=== PATIENT | female | born 1980 | race Caucasian/White ===

== ENCOUNTER 2017-03-05 14:37 | Outpatient (CLI) | payer MEDICAID | END 2017-03-05 14:38 | disposition critical access hospital (66) | DX: R07.9 Chest pain, unspecified (principal); R06.00 Dyspnea, unspecified; R25.2 Cramp and spasm | CPT/HCPCS: A0425; A0427 ==

== ENCOUNTER 2017-03-05 14:53 | Emergency (ER) | payer MEDICAID ==
[2017-03-05] MEDS ORDERED: LORazepam 0.5 MG TABLET PO STA (15:05)
[2017-03-05] MEDS ORDERED: LORazepam 2 MG/ML SYRINGE IVP STA (15:07)
[2017-03-05] MEDS ORDERED: LORazepam 2 MG/ML SYRINGE ONE (15:10)
== END 2017-03-05 16:15 | disposition home or self-care (01) ==
DX: F41.9 Anxiety disorder, unspecified (principal); F17.200 Nicotine dependence, unspecified, uncomplicated
CPT/HCPCS: 81003; 81025; 93005; 93010; 96374; 99283; J2060

== ENCOUNTER 2017-03-12 19:07 | Outpatient (CLI) | payer MEDICAID | END 2017-03-12 19:08 | disposition critical access hospital (66) | DX: R52 Pain, unspecified (principal) | CPT/HCPCS: A0425; A0429 ==

== ENCOUNTER 2017-03-12 19:25 | Emergency (ER) | payer MEDICAID ==
[2017-03-12] MEDS ORDERED: LORazepam 0.5 MG TABLET PO STA (20:27)
[2017-03-12] MEDS ORDERED: LORazepam 0.5 MG TABLET ONE (20:31)
== END 2017-03-12 21:34 | disposition home or self-care (01) ==
DX: F41.9 Anxiety disorder, unspecified (principal); F17.200 Nicotine dependence, unspecified, uncomplicated
CPT/HCPCS: 93005; 99283; A9270

== ENCOUNTER 2017-03-29 08:00 | Outpatient (CLI) | payer MEDICAID | END 2017-03-29 08:01 | disposition home or self-care (01) | DX: F17.210 Nicotine dependence, cigarettes, uncomplicated (principal); F41.9 Anxiety disorder, unspecified ==

== ENCOUNTER 2019-01-19 16:39 | Emergency (ER) | payer OTHER ==
[2019-01-19 16:43] VITALS: BP 147/98
[2019-01-19 17:56] LABS: BILIRUBIN,URINE NEGATIVE (NEGATIVE); GLUCOSE, URINE (UA) NEGATIVE (NEGATIVE); KETONES,URINE (UA) NEGATIVE (NEGATIVE); LEUKOCYTE ESTERASE, URINE TRACE (NEGATIVE); NITRITE,URINE NEGATIVE (NEGATIVE); OCCULT BLOOD,URINE NEGATIVE (NEGATIVE); PROTEIN,URINE NEGATIVE (NEGATIVE); UROBILINOGEN,URINE 0.2 (NORMAL) E.U./dL (NORMAL)
[2019-01-19 18:04] LABS: BACTERIA,URINE None Seen /HPF (None Seen); CLARITY,URINE CLEAR (CLEAR); HCG UR QUAL NEGATIVE; MUCUS,URINE Few Strands; RBC,URINE 0-5 /HPF (0-5); SQUAMOUS EPITHELIAL CELL,UR MOD Squamous (<= Few)
[2019-01-19] MEDS ORDERED: HYDROcod/ACET 5/325 Prepack 4 PO STA (18:48)
[2019-01-19] MEDS ORDERED: traMADol 50 MG TABLET PO STA (18:48)
[2019-01-19] MEDS ORDERED: DEXAMETHASONE 10 MG/ML VIAL PO STA (18:48)
[2019-01-19] MEDS ORDERED: CYCLOBENZAPRINE 10 MG TABLET PO STA (18:48)
--- NOTE | 2019-01-19 18:54 | ED Physician Documentation ---
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 Some pain in lower back as well. No fall nor direct impact.) Where injury occurred: Work Timing - onset: How many days ago (the past several days to a week, has been doing this different task at work, with increasing pains in back.) Timing - duration: Days Timing - details: Gradual onset, Still present Quality: Pain, Spasm Worsened by: Moving, Palpating Associated symptoms: No: Fever, Weakness, Numbness Contributing factors: Work related Recently seen: Not recently seen Review of Systems Constitutional: denies: Fever, Chills Nose: denies: Rhinorrhea / runny nose, Congestion Throat: denies: Sore throat Respiratory: denies: Cough GI: denies: Abdominal Pain, Nausea, Vomiting, Diarrhea Skin: denies: Rash, Lesions Neurologic: denies: Focal weakness, Numbness PD PAST MEDICAL HISTORY - Past Medical History Past Medical History: Yes Cardiovascular: None Respiratory: None Endocrine/Autoimmune: None GI: None 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 : None HEENT: None Psych: Anxiety Musculoskeletal: None Derm: None - Past Surgical History Past Surgical History: Yes - Present Medications Home Medications: Ambulatory Orders Medication Instructions Recorded Confirmed Dexamethasone [Decadron] 4 mg PO DAILY #5 tablet 01/19/19 Tizanidine HCl 4 mg PO QID PRN #20 capsule 01/19/19 Tramadol HCl 50 mg PO Q6H PRN #20 tablet 01/19/19 - Allergies Allergies/Adverse Reactions: Allergies Allergy/AdvReac Type Severity Reaction Status Date / Time Penicillins Allergy Unknown Verified 01/19/19 16:43 - Social History Does the pt smoke?: Yes Smoking Status: Current every day smoker Does the pt drink ETOH?: Yes Does the pt have substance abuse?: No - Immunizations Immunizations are current?: Yes - POLST Patient has POLST: No PD ED PE NORMAL - Vitals Vital signs reviewed: Yes - General General: Alert and oriented X 3, Well developed/nourished - Neck Neck: Supple, no meningeal sign, No bony TTP, No adenopathy - Cardiac Cardiac: RRR, No murmur - Respiratory Respiratory: Clear bilaterally - Abdomen Abdomen: Soft, Non tender - Back Back: No spinal TTP (but is tender in parathoracic muscles and some in paralumbar muscles. Guarded ROM. ) - Derm Derm: Normal color, Warm and dry - Neuro Neuro: No motor deficit, No sensory deficit, Other (normal reflexes at knees. ) Results - Vitals Vitals: Oxygen O2 Source Room air - Labs Labs: Laboratory Tests 01/19/19 17:45 Urine Color YELLOW Urine Clarity CLEAR Urine pH 6.0 Ur Specific Thicket 1.025 Urine Protein NEGATIVE Urine Glucose (UA) NEGATIVE Urine Ketones NEGATIVE Urine Occult Blood NEGATIVE Urine Nitrite NEGATIVE Urine Bilirubin NEGATIVE Urine Urobilinogen 0.2 (NORMAL) Ur Leukocyte Esterase TRACE H Urine RBC 0-5 Urine WBC 4-5 Ur Squamous Epith Cells MOD Squamous H Urine Bacteria None Seen Urine Mucus Few Strands Ur Microscopic Review INDICATED Urine Culture Comments NOT INDICATED Urine HCG, Qual NEGATIVE PD MEDICAL DECISION MAKING - ED course Complexity details: considered differential (back pain without direct injury and without red flags. ), d/w patient Departure - Departure Disposition: Home, Self Care Clinical Impression: Back strain Qualifiers: Encounter type: initial encounter Qualified Code(s): S39.012A - Strain of muscle, fascia and tendon of lower back, initial encounter Condition: Stable Record reviewed to determine appropriate education?: Yes Instructions: ED Low Back Pain Injury Follow-Up: [facility] [Provider Group] [facility] [Provider Group] Prescriptions: Dexamethasone [Decadron] 4 mg PO DAILY #5 tablet Tizanidine HCl 4 mg PO QID PRN #20 capsule PRN Reason: Spasms Tramadol HCl 50 mg PO Q6H PRN #20 tablet PRN Reason: Pain Comments: Heat and gentle stretching for the back areas that are sore. Physical treatments such as massage and chiropractic are good to try. You can continue the ibuprofen or naproxen. Add Decadron steroid anti-inflammatory for 5 days. Change muscle relaxant to tizanidine and use up for spasms. It commonly does not make you too sleepy so try it and see if you are able to use it during the day. Use Tylenol and or tramadol if needed for worse pain. Off work for 3 days but be sure to do some range of motion during that time. Follow-up with your primary care and call tomorrow for an appointment for later this week. Forms: Activity restrictions Discharge Date/Time: 01/19/19 19:13
== END 2019-01-19 19:13 | disposition home or self-care (01) ==
LOC: ED 16:39
DX: S39.012A Strain of muscle, fascia and tendon of lower back, initial encounter (principal); X50.1XXA Overexertion from prolonged static or awkward postures, initial encounter; Y93.E5 Activity, floor mopping and cleaning; Y99.0 Civilian activity done for income or pay; M54.6 Pain in thoracic spine; M25.519 Pain in unspecified shoulder; F17.200 Nicotine dependence, unspecified, uncomplicated
CPT/HCPCS: 81001; 81025; 99283; A9270; 81003; 87086

== ENCOUNTER 2019-04-04 18:23 | Outpatient (CLI) | payer OTHER | END 2019-04-04 18:24 | disposition critical access hospital (66) | LOC: EMS 18:23 | PROVIDERS: ATTEND Surgery | DX: R06.4 Hyperventilation (principal); R42 Dizziness and giddiness; R68.83 Chills (without fever); R25.2 Cramp and spasm; F41.9 Anxiety disorder, unspecified ==

== ENCOUNTER 2019-04-04 18:38 | Emergency (ER) | payer MEDICAID, OTHER ==
[2019-04-04] MEDS ORDERED: LORazepam 1 MG TABLET PO STA (18:43)
--- NOTE | 2019-04-04 18:44 | ED Physician Documentation ---
History of Present Illness - Stated complaint Stated Complaint: ANXIETY - History obtained from History obtained from: Patient - History of Present Illness Timing: Today (38-year-old woman with occasional anxiety attacks developed an anxiety attack at work with substernal chest pressure and rapid breathing and carpopedal spasms. She does not take any medication routinely for this. She feels like it is related to work stress. 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 : None HEENT: None Psych: Anxiety Musculoskeletal: None Derm: None - Past Surgical History Past Surgical History: Yes - Present Medications Home Medications: Ambulatory Orders Medication Instructions Recorded Confirmed Dexamethasone [Decadron] 4 mg PO DAILY #5 tablet 01/19/19 Tizanidine HCl 4 mg PO QID PRN #20 capsule 01/19/19 Tramadol HCl 50 mg PO Q6H PRN #20 tablet 01/19/19 Lorazepam [Ativan] 1 mg PO TID PRN #7 tablet 04/04/19 - Allergies Allergies/Adverse Reactions: Allergies Allergy/AdvReac Type Severity Reaction Status Date / Time Penicillins Allergy Unknown Verified 04/04/19 18:44 - Social History Does the pt smoke?: Yes Smoking Status: Current every day smoker Does the pt drink ETOH?: Yes Does the pt have substance abuse?: No - Immunizations Immunizations are current?: Yes - POLST Patient has POLST: No PD ED PE NORMAL - Vitals Vital signs reviewed: Yes - General General: Alert and oriented X 3, Other (Anxious with carpopedal spasms) - HEENT HEENT: PERRL, EOMI - Neck Neck: Supple, no meningeal sign, No bony TTP - Cardiac Cardiac: RRR, No murmur - Respiratory Respiratory: No respiratory distress, Clear bilaterally - Abdomen Abdomen: Non tender - Neuro Neuro: Alert and oriented X 3, Normal speech - Psych Psych: Normal mood, Normal affect Results - Vitals Vitals: Vital Signs - 24 hr 04/04/19 18:41 Temperature 37.5 C Heart Rate 75 Respiratory 14 Rate Blood Pressure 137/101 H O2 Saturation 100 Oxygen O2 Source Room air PD MEDICAL DECISION MAKING - ED course ED course: 38-year-old woman presents by ambulance for an anxiety attack. After some observation and a milligram of Ativan she was feeling back to normal. Departure - Departure Disposition: Home, Self Care Clinical Impression: Anxiety Condition: Good Record reviewed to determine appropriate education?: Yes Instructions: ED Panic Attack Prescriptions: Lorazepam [Ativan] 1 mg PO TID PRN #7 tablet PRN Reason: Anxiety Comments: Call your doctor to arrange a follow-up appointment, make the next available appointment. In the interim, return anytime if worse or if new symptoms develop. Your blood pressure was elevated today on check into the emergency department. This does not mean that you have hypertension, it is a common phenomenon to come to the emergency department and have elevated blood pressure. I recommend that you see your primary care physician within the week to have it rechecked when you are feeling better.
[2019-04-04 19:36] VITALS: BP 149/79
== END 2019-04-04 19:48 | disposition home or self-care (01) ==
LOC: EDUNIT# → ED 18:38
DX: F41.9 Anxiety disorder, unspecified (principal); R03.0 Elevated blood-pressure reading, without diagnosis of hypertension; F17.200 Nicotine dependence, unspecified, uncomplicated
CPT/HCPCS: 99283; J8499

== ENCOUNTER 2019-05-11 14:53 | Emergency (ER) | payer OTHER ==
[2019-05-11 15:04] VITALS: BP 126/92
--- NOTE | 2019-05-11 15:33 | XRAY Report ---
Reason: L foot pain Procedure Date: 05/11/2019 Accession Number: [id number] / [id number] Procedure: XR - Foot 3 View LT CPT Code: FULL RESULT: EXAM: LEFT FOOT RADIOGRAPHY EXAM DATE: 05/11/2019 03:21 PM. CLINICAL HISTORY: L foot pain. COMPARISON: None. TECHNIQUE: 3 views. FINDINGS: Bones: Normal. No fractures or bone lesions. Joints: Normal. No subluxations. Soft Tissues: Normal. No soft tissue swelling. IMPRESSION: Normal foot radiography. RADIA
[2019-05-11] MEDS ORDERED: IBUPROFEN 800 MG TABLET PO STA (15:40)
--- NOTE | 2019-05-11 15:43 | ED Physician Documentation ---
PD HPI LOWER EXT INJURY - Stated complaint Stated Complaint: LFT FT INJ - Chief complaint Chief Complaint: Ext Problem - History obtained from History obtained from: Patient, Family - History of Present Illness PD HPI LOW EXT INJURY LOCATION: Left, Foot Type of injury: Other (kicked a cart) Where injury occurred: Work Timing - onset: Last night Timing - duration: Days (1) Timing - details: Abrupt onset Pain level max: 6 Pain level now: 5 Improved by: Rest, Ice, Immobilization Worsened by: Moving, Palpating Associated symptoms: No: Weakness, Numbness, Tingling, Swelling Recently seen: Not recently seen Review of Systems : denies: Now EGA Neurologic: denies: Focal weakness, Numbness PD PAST MEDICAL HISTORY - Past Medical History Cardiovascular: None Respiratory: None Neuro: None Endocrine/Autoimmune: None GI: None 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 : None HEENT: None Psych: Anxiety Musculoskeletal: None Derm: None - Past Surgical History Past Surgical History: Yes - Present Medications Home Medications: Ambulatory Orders Medication Instructions Recorded Confirmed Tizanidine HCl 4 mg PO QID PRN #20 capsule 01/19/19 Tramadol HCl 50 mg PO Q6H PRN #20 tablet 01/19/19 dexAMETHasone [Decadron] 4 mg PO DAILY #5 tablet 01/19/19 Lorazepam [Ativan] 1 mg PO TID PRN #7 tablet 04/04/19 Ibuprofen [Motrin] 800 mg PO Q8H PRN #30 tablet 05/11/19 - Allergies Allergies/Adverse Reactions: Allergies Allergy/AdvReac Type Severity Reaction Status Date / Time Penicillins Allergy Unknown Verified 04/04/19 18:44 - Social History Does the pt smoke?: Yes Smoking Status: Current every day smoker Does the pt drink ETOH?: Yes Does the pt have substance abuse?: No - Immunizations Immunizations are current?: Yes - POLST Patient has POLST: No PD ED PE NORMAL - Vitals Vital signs reviewed: Yes - General General: Alert and oriented X 3, No acute distress - HEENT HEENT: Moist mucous membranes - Derm Derm: Warm and dry - Extremities Extremities: Other (L foot - Mild diffuse tenderness. No gross deformity. No swelling. Neurovascular intact. No bruising.) - Neuro Neuro: Alert and oriented X 3 Results - Vitals Vitals: Vital Signs - 24 hr 05/11/19 14:59 Temperature 37.1 C Heart Rate 82 Respiratory 16 Rate Blood Pressure 126/92 H O2 Saturation 100 Oxygen O2 Source Room air - Rads (name of study) L foot xray Radiology: Prelim report reviewed, EMP read contemporaneously, See rad report (Normal) PD MEDICAL DECISION MAKING - ED course Complexity details: reviewed results, re-evaluated patient, considered differential, d/w patient ED course: Patient with a left foot contusion. Placed in a postoperative shoe for comfort. Will prescribe Motrin for home. Given crutches. L and I paperwork filled out patient counseled regarding signs and symptoms for which I believe and urgent re-evaluation would be necessary. Patient with good understanding of and agreement to plan and is comfortable going home at this time This document was made in part using voice recognition software. While efforts are made to proofread this document, sound alike and grammatical errors may occur. Departure - Departure Disposition: 01 Home, Self Care Clinical Impression: Contusion of left foot Qualifiers: Encounter type: initial encounter Qualified Code(s): S90.32XA - Contusion of left foot, initial encounter Condition: Good Health Concerns: foot pain Plan of Treatment: supportive Care Goals: improve pain Assessment: foot contusion Instructions: ED Contusion Foot Follow-Up: your,doctor in1 week [Other] Prescriptions: Ibuprofen [Motrin] 800 mg PO Q8H PRN #30 tablet PRN Reason: PAIN &/OR FEVER Comments: Follow-up with your doctor for further care. You may bear weight as tolerated. Use the crutches as needed. Discharge Date/Time: 05/11/19 15:51
== END 2019-05-11 15:51 | disposition home or self-care (01) ==
LOC: ED 14:53
DX: S90.32XA Contusion of left foot, initial encounter (principal); W22.8XXA Striking against or struck by other objects, initial encounter; Y99.0 Civilian activity done for income or pay; F17.200 Nicotine dependence, unspecified, uncomplicated
CPT/HCPCS: 99283

== ENCOUNTER 2023-10-03 12:42 | Outpatient (CLI) | payer SELFPAY | END 2023-10-03 12:43 | disposition EMS.NT | LOC: EMS 12:42 | DX: R23.2 Flushing (principal); R20.2 Paresthesia of skin; R25.2 Cramp and spasm ==